=== PATIENT | female | born 1985 | race Caucasian/White ===

== ENCOUNTER 2020-05-17 20:44 | Emergency (ER) | payer OTHER ==
[2020-05-17] MEDS ORDERED: oxyCODONE HCL 5 MG TABLET PO ONE (21:19)
[2020-05-17] MEDS ORDERED: oxyCODONE HCL 5 MG TABLET ONE (21:24)
== END 2020-05-18 05:20 | disposition home or self-care (01) ==
LOC: JER 20:44
DX: S92.001A Unspecified fracture of right calcaneus, initial encounter for closed fracture (principal); W05.0XXA Fall from non-moving wheelchair, initial encounter
CPT/HCPCS: 73610-TC-RT-FY; 73630-TC-RT-FY; 73700-TC-RT; 99284-25

== ENCOUNTER 2021-02-04 17:34 | Emergency (ER) | payer OTHER ==
[2021-02-04 18:05] VITALS: BP 131/82; PULSE 97; TEMP 98.1; BMI 32.4
[2021-02-04] MEDS ORDERED: ACETAMINOPHEN 500 MG TABLET (FP) PO ONE (18:35)
[2021-02-04] MEDS ORDERED: ACETAMINOPHEN 325 MG TABLET (FP) ONE (18:54)
== END 2021-02-04 22:03 | disposition home or self-care (01) ==
LOC: JER 17:34
DX: M79.671 Pain in right foot (principal)
CPT/HCPCS: 36415; 73590-TC-RT-FY; 73610-TC-RT-FY; 73630-TC-RT-FY; 73700-TC-RT; 84703; 99285-25

== ENCOUNTER 2021-04-23 18:55 | Emergency (ER) | payer OTHER ==
[2021-04-23 19:34] VITALS: BP 128/87; PULSE 93; TEMP 98.2; BMI 33.5
[2021-04-23] MEDS ORDERED: KETOROLAC TROMETHAMINE 60 MG/2 ML VIAL IM ONE (21:09)
[2021-04-23] MEDS ORDERED: LIDOCAINE 5% TOPICAL PATCH TP ONE (21:10)
[2021-04-23] MEDS ORDERED: KETOROLAC TROMETHAMINE 30 MG/1 ML VIAL ONE (21:11)
== END 2021-04-23 22:59 | disposition home or self-care (01) ==
LOC: JER 18:55 → JERFT 18:55
PROC: 3E023GC Introduction of Other Therapeutic Substance into Muscle, Percutaneous Approach (ICD-10-PCS; principal; 2021-04-23)
DX: M54.6 Pain in thoracic spine (principal)
CPT/HCPCS: 71101-TC-RT-FY; 72070-TC-FY; 99284-25